=== PATIENT | female | born 1980 | race Caucasian/White ===

== ENCOUNTER 2017-05-29 16:26 | Emergency (ER) | payer OTHER ==
[~2017-05-29] VITALS: Ht 167.6 cm; Wt 75.9 kg
[2017-05-29 16:32] VITALS: TEMP 36.5; Ht 167.6 cm; Wt 75.9 kg
--- NOTE | 2017-05-29 16:47 | EMERGENCY ROOM VISIT NOTE ---
History Report prepared by Latasha: Abdi Goldberg Under the Supervision of: Dr. Shay Pederson D.O. First contact with patient: 16:38 Chief Complaint: ABDOMINAL PAIN Stated Complaint: ABDOMINAL PAIN- REFERRED Nursing Triage Summary: patient c/o abdominal pain "for a couple months." patient went to Urgent care and had a outpatient CT. urgent care called patient and was told to come to ER. "Something in my bowels.." Patient is unsure of results. RN asked patient when her last period was. patient states "4 weeks ago.. I am bleeding a little but the doctor said its not my period it is something else." denies n/v/d History of Present Illness The patient is a 36 year old female with a history of a hernia who presents to the Emergency Room with complaints of worsening abdominal pain that started a couple months ago. She states that the pain is worsened with lifting anything, and she can hardly lift anything due to the pain. She adds that she can hardly have a bowel movement due to the pain. The patient notes that she has had intermittent fevers. She says that she has a history of hernia surgery and an appendectomy. The patient says that her pain has been "terrible", and she went to the urgent care this morning, and was sent to get a CT. After the CT resulted (which revealed a large adnexal mass) she was sent here for evaluation and an ultrasound, although the doctor noted that he did not think that it is a hernia problem. The patient notes that the pain is located around her hernia, but the pain is different. She denies any nausea, vomiting, back pain, or leg swelling. The patient says that she has no chronic medical conditions and does not take any daily medications. She says that she does not use tobacco products. Source of History: patient, spouse/significant other Onset: A couple months ago Position: abdomen Symptom Intensity: terrible Quality: other (pain) Timing: worsening Modifying Factors (Worsening): other (lifting, having bowel movements) Associated Symptoms: + fevers, No nausea, No vomiting, No back pain Note: Denies leg swelling. Review of Systems See HPI for pertinent positives & negatives. A total of 10 systems reviewed and were otherwise negative. Past Medical & Surgical Medical Problems: (1) Hernia (2) No chronic problems Surgical Problems: (1) History of hernia surgery (2) Hx of appendectomy Family History No pertinent family history Social History Smoking Status: Never Smoker Smokeless Tobacco Use: No Drug Use: none Marital Status: Housing Status: lives with family Current/Historical Medications Scheduled Cefdinir (Omnicef), 300 MG PO Q12H Allergies Coded Allergies: No Known Allergies (Verified , 05/29/17) Physical Exam Vital Signs Date Time Temp Pulse Resp B/P (MAP) Pulse Ox O2 Delivery O2 Flow Rate FiO2 05/29/17 20:14 88 18 128/80 100 05/29/17 16:32 36.5 94 18 125/76 100 Room Air Physical Exam GENERAL: Patient is awake, alert, and in no acute distress. Patient is resting comfortably and showing no signs of anxiety EYES: The conjunctivae are clear. The pupils are round and reactive. EARS, NOSE, MOUTH AND THROAT: The nose is without any evidence of any deformity. Mucous membranes are moist tongue is midline NECK: The neck is nontender and supple. RESPIRATORY: Normal respiratory effort is noted there is no evidence of wheezing rhonchi or rales CARDIOVASCULAR: Regular rate and rhythm noted there no murmurs rubs or gallops normal S1 normal S2 GASTROINTESTINAL: The abdomen is moderately distended but soft. Right lower quadrant tenderness to palpation. No guarding or rigidity. BACK: No midline tenderness or or step-off noted range of motion in flexion extension as well as rotation no signs of muscle spasm noted MUSCULOSKELETAL/EXTREMITIES: There is no evidence of gross deformity full range of motion is noted in the hips and shoulders SKIN: There is no obvious evidence of any rash. There are no petechiae, pallor or cyanosis noted. NEUROLOGIC: Patient is awake alert and oriented x3. Medical Decision & Procedures ER Provider Diagnostic Interpretation: CT PELVIS W/ IV CONTRAST: At [facility] earlier today: EXAM: CT PELVIS W CON: HISTORY: 36-year-old female with a pelvic/groin pain with several months. History of hernia repair many years ago. History of appendectomy. COMPARISON: None. TECHNIQUE: Axial contrast enhanced CT of the pelvis was performed. Both oral and IV contrast were administered. FINDINGS: Uterus: unremarkable. Adnexa: There is a heterogenous mixed cystic and solid mass in the right adnexa with solid enhancing mural nodules along its superior border, overall measuring 5.1 x 4.8 x 5.7 cm. Additional 4.8 cm cyst noted in the left adnexa. Bladder: Unremarkable. Visualized bowel: Unremarkable. Free fluid: None Vessels: Unremarkable Bones: Unremarkable Superficial soft tissues: Unremarkable. No recurrent hernia identified. IMPRESSION: 1: Mixed cystic and solid mass in the right adnexa suspicious for ovarian neoplasm, less likely PID with tubo-ovarian abscess or ovarian torsion. 4.8 cm cyst in the left adnexa is more simple appearing. Recommend further evaluation with pelvis ultrasound. 2: No recurrent hernia identified. ELECTRONICALLY SIGNED: 05/29/17 02:37 PM RAMIRO FANG DO US results as stated below per my review and radiologist interpretation. EXAMINATION: PELVIC ULTRASOUND (transabdominal and endovaginal scanning) CLINICAL HISTORY: Adnexal mass on outside CT scan COMPARISON STUDY: CT scan from this institution dated 05/15/2009 FINDINGS: The uterus measured 7.2 x 3.7 x 5.1 cm. The endometrial stripe measured 4 mm. The right ovary measured 36 x 15 x 18 mm.. The left ovary measured 60 x 37 x 47 mm. There is a 43 mm left ovarian cyst. Within the right adnexa just to the right of midline, there is a 60 x 44 x 41 mm heterogeneous mass. This abuts the right ovary. It is unclear whether this is of ovarian origin. Gynecological consultation is recommended.. There was no evidence of pathologic free pelvic fluid. IMPRESSION: 1. 43 mm left ovarian cyst. No septations or mural nodules are visualized 2. Complex solid heterogeneous 60 x 44 x 41 mm right adnexal mass, with internal vascularity.. This abuts the right ovary. It is difficult to determine whether this is of ovarian or extraovarian origin. Given the internal vascularity, this may represent a neoplastic process. Gynecological consultation is recommended. Electronically signed by: Garcia Don M.D. 05/29/2017 6:51 PM Dictated Date/Time: 05/29/2017 6:39 PM Laboratory Results 05/29/17 17:18 Red Blood Count 4.93, Mean Corpuscular Volume 87.0, Mean Corpuscular Hemoglobin 30.0, Mean Corpuscular Hemoglobin Concent 34.5, Mean Platelet Volume 10.8, Neutrophils (%) (Auto) 77.2, Lymphocytes (%) (Auto) 12.7, Monocytes (%) (Auto) 8.2, Eosinophils (%) (Auto) 1.3, Basophils (%) (Auto) 0.3, Neutrophils # (Auto) 8.97, Lymphocytes # (Auto) 1.47, Monocytes # (Auto) 0.95, Eosinophils # (Auto) 0.15, Basophils # (Auto) 0.04 05/29/17 17:18 Test 05/29/17 17:18 05/29/17 17:24 White Blood Count 11.61 K/uL (4.8-10.8) Red Blood Count 4.93 M/uL (4.2-5.4) Hemoglobin 14.8 g/dL (12.0-16.0) Hematocrit 42.9 % (37-47) Mean Corpuscular Volume 87.0 fL (80-100) Mean Corpuscular Hemoglobin 30.0 pg (25-34) Mean Corpuscular Hemoglobin Concent 34.5 g/dl (32-36) Platelet Count 192 K/uL (130-400) Mean Platelet Volume 10.8 fL (7.4-10.4) Neutrophils (%) (Auto) 77.2 % Lymphocytes (%) (Auto) 12.7 % Monocytes (%) (Auto) 8.2 % Eosinophils (%) (Auto) 1.3 % Basophils (%) (Auto) 0.3 % Neutrophils # (Auto) 8.97 K/uL (1.4-6.5) Lymphocytes # (Auto) 1.47 K/uL (1.2-3.4) Monocytes # (Auto) 0.95 K/uL (0.11-0.59) Eosinophils # (Auto) 0.15 K/uL (0-0.5) Basophils # (Auto) 0.04 K/uL (0-0.2) RDW Standard Deviation 40.8 fL (36.4-46.3) RDW Coefficient of Variation 12.8 % (11.5-14.5) Immature Granulocyte % (Auto) 0.3 % Immature Granulocyte # (Auto) 0.03 K/uL (0.00-0.02) Nucleated RBC Absolute Count (auto) 0.08 K/uL (0-0) Nucleated Red Blood Cells % 0.7 % Anion Gap 8.0 mmol/L (3-11) Est Creatinine Clear Calc Drug Dose 113.4 ml/min Estimated GFR () 127.4 Estimated GFR (Non- 109.9 BUN/Creatinine Ratio 18.6 (10-20) Calcium Level 9.1 mg/dl (8.5-10.1) Total Bilirubin 0.8 mg/dl (0.2-1) Aspartate Amino Transf (AST/SGOT) 18 U/L (15-37) Alanine Aminotransferase (ALT/SGPT) 29 U/L (12-78) Alkaline Phosphatase 76 U/L (45-117) Total Protein 7.6 gm/dl (6.4-8.2) Albumin 3.9 gm/dl (3.4-5.0) Globulin 3.7 gm/dl (2.5-4.0) Albumin/Globulin Ratio 1.1 (0.9-2) Human Chorionic Gonadotropin, Qual POS (NEG) Human Chorionic Gonadotropin, Quant 68 mIU/mL Urine Color YELLOW Urine Appearance TURBID (CLEAR) Urine pH 6.0 (4.5-7.5) Urine Specific [place] > 1.045 (1.000-1.030) Urine Protein TRACE (NEG) Urine Glucose (UA) NEG (NEG) Urine Ketones 2+ (NEG) Urine Occult Blood 2+ (NEG) Urine Nitrite POS (NEG) Urine Bilirubin NEG (NEG) Urine Urobilinogen NEG (NEG) Urine Leukocyte Esterase LARGE (NEG) Urine WBC (Auto) >30 /hpf (0-5) Urine RBC (Auto) 0-4 /hpf (0-4) Urine Hyaline Casts (Auto) 1-5 /lpf (0-5) Urine Epithelial Cells (Auto) 5-10 /lpf (0-5) Urine Bacteria (Auto) 4+ (NEG) Urine Yeast (Auto) PRESENT (NONE PRSENT) Laboratory results per my review. Medications Administered Medications (Trade) Dose Ordered Sig/Melany Route Start Time Stop Time Status Last Admin Dose Admin Sodium Chloride 1,000 ml @ 999 mls/hr Q1H1M STAT IV 05/29/17 16:49 05/29/17 17:49 DC 05/29/17 17:30 999 MLS/HR Ceftriaxone Sodium (Rocephin Inj) 1 gm NOW STAT IV 05/29/17 18:25 05/29/17 18:26 DC 05/29/17 18:57 1 GM ED Course 1639: The patient was evaluated in room A10. A complete history and physical examination were performed. 1648: NSS 1000 ml @ 999 mls/hr IV. 1824: Rocephin Inj 1 gm IV. 1937: I discussed the patient with Dr. Leonard GARCIA - he recommends outpatient follow-up with whoever she wants to see. 1944: Upon reevaluation, the patient is resting comfortably. I discussed the results and treatment plan with her. She verbalized agreement of the treatment plan. She was discharged home. Medical Decision Differential diagnosis: Etiologies such as appendicitis, diverticulitis, PUD, biliary pathology, UTI, pancreatitis, obstruction, mesenteric ischemia, aortic pathology, infections, inflammatory bowel disease, renal colic, as well as others were entertained. Nursing notes reviewed. CT scan report was also reviewed from the outside facility. The patient is a 36-year-old female who presented to the emergency department for right-sided abdominal pain. She had an outpatient CAT scan which revealed a large adnexal mass. She was sent to the emergency department for further evaluation. I explained the patient's CAT scan report to her she is aware that this could represent an ovarian tumor such as a cancer. She was also found of signs of urinary tract infection. She was treated with IV fluids and IV antibiotics. I discussed her case with the covering [employer] physician. At this time I feel the patient can follow-up with her primary [employer] physician as soon as possible for further evaluation and likely for biopsy. She was encouraged to do this as soon as possible. I explained to her that this could represent a cancer and that her best chance of a good outcome would be to see her [employer] physician as soon as possible to have biopsy and then treatment determined by this biopsy. She is also encouraged to drink plenty clear liquids and continue all medications as prescribed. He was also encouraged to return to the emergency department immediately if symptoms change worsen or the need arises. Medication Reconcilliation Current Medication List: was personally reviewed by me Blood Pressure Screening Patient's blood pressure: Normal blood pressure Consults Time Called: 1934 Consulting Physician: Dr. Leonard GARCIA Returned Call: 1937 I discussed the patient with Dr. Leonard GACRIA - he recommends outpatient follow-up with whoever she wants to see. Impression Primary Impression: UTI (urinary tract infection) Additional Impressions: RLQ abdominal pain Adnexal mass Scribe Attestation The scribe's documentation has been prepared under my direction and personally reviewed by me in its entirety. I confirm that the note above accurately reflects all work, treatment, procedures, and medical decision making performed by me. Departure Information Dispostion Home / Self-Care Prescriptions Cefdinir (OMNICEF) 300 Mg Cap 300 MG PO Q12H, #14 CAP Prov: Shay Pederson, DO 05/29/17 Referrals No Doctor, Assigned (PCP) Patient Instructions Cyst Ovarian About, [facility], Urinary Tract Infecs Women Additional Instructions Continue all medications as prescribed. Continue to use Motrin and Tylenol as directed for pain. Avoid any strenuous activity or heavy lifting until you are seen by her [employer] doctor. You will likely require further studies or possibly a biopsy of the mass that was noted on the right side of your pelvis. This may represent an ovarian cancer or some other type of cancer. Be sure to follow-up as soon as possible with your [employer] doctor. Problem Qualifiers Primary Impression: UTI (urinary tract infection) Urinary tract infection type: site unspecified Hematuria presence: without hematuria Qualified Codes: N39.0 - Urinary tract infection, site not specified
[2017-05-29] MEDS ORDERED: SODIUM CHLORIDE 0.9% 1000ML 1,000 ML IV STA (16:49)
[2017-05-29 17:40] LABS: BASO % 0.3 %; BASO ABS # 0.04 K/uL (0-0.2); EOS % 1.3 %; EOS ABS # 0.15 K/uL (0-0.5); HEMATOCRIT 42.9 % (37-47); HEMOGLOBIN 14.8 g/dL (12.0-16.0); IG# 0.03 K/uL (0.00-0.02); LYMPH % 12.7 %; LYMPH ABS # 1.47 K/uL (1.2-3.4); MEAN CORPUSCULAR HGB CONC 34.5 g/dl (32-36); MEAN PLATELET VOLUME 10.8 fL (7.4-10.4); MONO % 8.2 %; MONO ABS # 0.95 K/uL (0.11-0.59); NEUT % 77.2 %; NEUT ABS # 8.97 K/uL (1.4-6.5); NUCLEATED RED BLOOD CELL ABS 0.08 K/uL (0-0); PLATELET COUNT 192 K/uL (130-400); RED CELL DISTRIBUTION WIDTH CV 12.8 % (11.5-14.5); RED CELL DISTRIBUTION WIDTH SD 40.8 fL (36.4-46.3); WHITE BLOOD COUNT 11.61 K/uL (4.8-10.8)
[2017-05-29 18:03] LABS: ALBUMIN 3.9 gm/dl (3.4-5.0); CALCIUM 9.1 mg/dl (8.5-10.1); CREATININE 0.7 mg/dl (0.60-1.20); POTASSIUM 3.9 mmol/L (3.5-5.1)
[2017-05-29 18:06] LABS: TOTAL PROTEIN 7.6 gm/dl (6.4-8.2)
[2017-05-29] MEDS ORDERED: CEFTRIAXONE SOD INJ 1 GM ADDVIAL IV STA (18:25)
--- NOTE | 2017-05-29 18:52 | DIAGNOSTIC IMAGING REPORT ---
EXAMINATION: PELVIC ULTRASOUND (transabdominal and endovaginal scanning) CLINICAL HISTORY: Adnexal mass on outside CT scan COMPARISON STUDY: CT scan from this institution dated 05/15/2009 FINDINGS: The uterus measured 7.2 x 3.7 x 5.1 cm. The endometrial stripe measured 4 mm. The right ovary measured 36 x 15 x 18 mm.. The left ovary measured 60 x 37 x 47 mm. There is a 43 mm left ovarian cyst. Within the right adnexa just to the right of midline, there is a 60 x 44 x 41 mm heterogeneous mass. This abuts the right ovary. It is unclear whether this is of ovarian origin. Gynecological consultation is recommended.. There was no evidence of pathologic free pelvic fluid. IMPRESSION: 1. 43 mm left ovarian cyst. No septations or mural nodules are visualized 2. Complex solid heterogeneous 60 x 44 x 41 mm right adnexal mass, with internal vascularity.. This abuts the right ovary. It is difficult to determine whether this is of ovarian or extraovarian origin. Given the internal vascularity, this may represent a neoplastic process. Gynecological consultation is recommended. Electronically signed by: Garcia Don M.D. 05/29/2017 6:51 PM Dictated Date/Time: 05/29/2017 6:39 PM
[2017-05-29] MEDS ORDERED: CEFD300C2 PO (19:44)
[2017-05-29 20:14] VITALS: BP 128/80; PULSE 88; O2SAT 100
== END 2017-05-29 20:15 | disposition home or self-care (01) ==
LOC: C.EDB 16:28 → C.EDA 20:15
DX: N39.0 Urinary tract infection, site not specified (principal); R19.09 Other intra-abdominal and pelvic swelling, mass and lump; R10.31 Right lower quadrant pain